=== PATIENT | female | born 1955 | race African-American/Black ===

== ENCOUNTER → 2019-10-29 11:31 | Outpatient (CLI) | payer MEDICARE, SELFPAY ==
--- NOTE | ~2019-10-29 | XR_ITS ---
EXAMINATION: XR foot LT min 3V, XR ankle LT min 3V EXAM DATE: 10/29/2019 12:05 INDICATION: No known recent injury provided at this time. Pain of the left ankle, foot. TECHNIQUE: Left foot dorsoplantar, lateral and oblique projections obtained and reviewed. Left ankle frontal, lateral and oblique projections obtained and reviewed. There is no prior study for compari son. FINDINGS: Left metatarsal bones unremarkable. The left ankle mortise appears intact. There is mo derate hallux valgus. There is mild 1st metatarsophalangeal joint primary osteoarthritis. No periost eal reaction or band of sclerosis to suggest subacute stress fracture. There are no bony erosions susana ntified. There are no acute fractures or dislocations identified. There is no subcutaneous gas. Trevin e swelling suspected along the anterior and lateral aspect of the ankle. There are no radiopaque for eign bodies. IMPRESSION: 1. Moderate left hallux valgus. 2. Mild 1st MTP osteoarthritis. 3. Ankle swelling anterolaterally Reviewed, dictated and finalized at location B. IMPRESSION: 1. Moderate left hallux valgus. 2. Mild 1st MTP osteoarthritis. 3. Ankle swelling anterolaterally
== END ==
DX: M20.12 Hallux valgus (acquired), left foot (principal); M19.072 Primary osteoarthritis, left ankle and foot; M79.89 Other specified soft tissue disorders
CPT/HCPCS: 73610; 73630

== ENCOUNTER 2021-06-25 09:59 | Outpatient (CLI) | payer MEDICARE, SELFPAY ==
[2021-06-25 11:39] LABS: Free T4 Free Thyroxine 0.95 ng/mL (0.78-2.19)
[2021-06-25 12:06] LABS: Thyroid Stimulating Hormone 0.052 uIU/mL (0.465-4.680)
[2021-06-30 08:38] LABS: Triiodothyronine T3 Free 3.5 pg/mL (2.3-4.2)
== END 2021-06-25 10:00 | disposition home or self-care (01) ==
PROVIDERS: PCP Family Medicine; Visit Provider Family Medicine
DX: E05.90 Thyrotoxicosis, unspecified without thyrotoxic crisis or storm (principal); E78.5 Hyperlipidemia, unspecified
CPT/HCPCS: 36415; 84439; 84443; 84481

== ENCOUNTER 2021-08-24 01:39 | Day surgery (SDC) | payer MEDICARE, SELFPAY ==
[2021-08-24 11:10] VITALS: BP 137/70; PULSE 60; RESP 18; TEMP 36.4; O2SAT 100
[2021-08-24] MEDS: LACTATED RINGERS 1,000 ML 150 ML IV CONT (11:21)
--- NOTE | 2021-08-24 11:32 | P.PNAN_ITS ---
Anes - Initial Pre Proc Eval Procedure: Operation Date: 08/24/21 12:30 Proposed Procedures p Screening Colonoscopy - David Guzman MD Date/Time: 08/24/21 11:32 Surgeon: David Guzman MD Pre Op Diagnosis: neoplasm screening Patient Data Age: 66 Gender: F Height: 1.55 m Weight: 48.2 kg Last Vital Signs Temp 36.4 C L 08/24/21 11:10 Pulse 60 08/24/21 11:10 Resp 18 08/24/21 11:10 BP 137/70 08/24/21 11:10 Pulse Ox 100 08/24/21 11:10 O2 Del Method Room Air 08/24/21 11:10 Allergies Allergy/AdvReac Type Severity Reaction Status Date / Time No Known Allergies Allergy Verified 08/24/21 11:09 Home Medications Medication Instructions Recorded Confirmed Type atorvastatin 10 mg tablet 0.5 tablet PO DAILY 08/11/21 08/11/21 History benzonatate 200 mg capsule 1 cap PO TID PRN Anxiety 08/11/21 08/11/21 History ergocalciferol (vitamin D2) 1,250 1 cap PO WEEKLY 08/11/21 08/11/21 History mcg (50,000 unit) capsule losartan 25 mg tablet 1 tablet PO DAILY 08/11/21 08/11/21 History Patient hx anesthesia problems: none Family hx anesthesia problems: none Results Review: All pre-operative results and documents have been reviewed as part of the pre- operative evaluation. PMFSH Past Medical History Medical History HTN (hypertension) Hyperlipidemia Smoker Social History Social History Smoking status: Current some day smoker Tobacco type: cigarettes Additional smoking assessment comments: 1 Cigarette a month Substance use: current Substance use type: marijuana Other substance usage details: Uses gummies 1-2 times a month for anxiety Last use: June 2021 Living arrangements: alone Spiritual care concerns: No Anes - Eval Final PreProcedure Day of Procedure 08/24/21 11:32 Patient weight: overweight Heart: regular rate and rhythm Lungs: clear to auscultation and normal air movement Airway: Mallampati scale class II Neurological: alert and oriented Last oral intake: >/= 8 hours ASA classification: II Emergent: no Anesthetic plan: proceed Anesthesia type and monitoring: general GIVS Results Review: All pre-operative results and documents have been reviewed as part of the pre- operative evaluation. Informed Consent: The patient's anesthetic plan and its attendant risks and benefits were discussed with the patient/family/POA. Questions were solicited and answers provided to the satisfaction of the patient/family/POA.
--- NOTE | 2021-08-24 11:52 | PM.HPGS ---
History of Present Illness History of Present Illness Consent: Risks, benefits, and alternatives have been discussed and questions answered. Patient agrees to proceed with procedure. Chief complaint: neoplasm screening Narrative: Becca Moscoso is a 66 year old female Referred for colon cancer screening. Review of Systems Review of Systems: All systems reviewed & are unremarkable except as noted in HPI and below PMFSH Past Medical History Medical History HTN (hypertension) Hyperlipidemia Smoker Social History Social History Smoking status: Current some day smoker Tobacco type: cigarettes Additional smoking assessment comments: 1 Cigarette a month Substance use: current Substance use type: marijuana Other substance usage details: Uses gummies 1-2 times a month for anxiety Last use: June 2021 Living arrangements: alone Spiritual care concerns: No Meds Home Medications and Allergies Home Medications Medication Instructions Recorded Confirmed Type atorvastatin 10 mg tablet 0.5 tablet PO DAILY 08/11/21 08/11/21 History benzonatate 200 mg capsule 1 cap PO TID PRN Anxiety 08/11/21 08/11/21 History ergocalciferol (vitamin D2) 1,250 1 cap PO WEEKLY 08/11/21 08/11/21 History mcg (50,000 unit) capsule losartan 25 mg tablet 1 tablet PO DAILY 08/11/21 08/11/21 History Allergies Allergy/AdvReac Type Severity Reaction Status Date / Time No Known Allergies Allergy Verified 08/24/21 11:09 Vital Signs Vital Signs - 24 hr 08/24/21 11:10 Temperature 36.4 C L Pulse Rate 60 Respiratory Rate 18 Blood Pressure 137/70 Pulse Oximetry 100 Oxygen Delivery Room Air Exam Const: General: alert Orientation/consciousness: patient oriented x3 Resp: Auscultation: clear to auscultation bilaterally Cardio: Rhythm: regular rhythm GI: GI Palp: Yes Soft to palpation and No Tenderness to palpation present (GI) Neuro: General: patient oriented x3 Assessment and Plan Assessment and plan (1) Colon cancer screening: Code(s): Z12.11 - Encounter for screening for malignant neoplasm of colon Status: Acute Assessment and Plan: Colonoscopy with possible biopsy or polypectomy or cautery or injection of substances.
--- NOTE | 2021-08-24 12:56 | SUR.OPER ---
Ascending colon polyp was not retrieved in polyp trap, Dr. Guzman aware, no further orders received.
[2021-08-24 12:58] VITALS: BP 110/60; PULSE 60; RESP 22; O2SAT 99
[2021-08-24 13:08] VITALS: BP 149/82; PULSE 62; RESP 19; O2SAT 100
[2021-08-24 13:18] VITALS: BP 151/84; PULSE 63; RESP 19; O2SAT 99
== END 2021-08-24 13:30 | disposition home or self-care (01) ==
PROVIDERS: PCP Family Medicine; Visit Provider Internal Medicine Gastroenterology
PROC: 0DJD8ZZ Inspection of Lower Intestinal Tract, Via Natural or Artificial Opening Endoscopic (ICD-10-PCS; CPT 45378; principal; 2021-08-24 12:30)
DX: Z12.11 Encounter for screening for malignant neoplasm of colon (principal); Q27.33 Arteriovenous malformation of digestive system vessel; K63.5 Polyp of colon; K57.30 Diverticulosis of large intestine without perforation or abscess without bleeding; I10 Essential (primary) hypertension; E78.5 Hyperlipidemia, unspecified; F17.210 Nicotine dependence, cigarettes, uncomplicated; F12.90 Cannabis use, unspecified, uncomplicated
CPT/HCPCS: 45388; 45385; J2704; J7120

== ENCOUNTER 2021-08-28 12:29 | Outpatient (CLI) | payer MEDICARE, SELFPAY ==
[2021-08-28 13:12] LABS: Cholesterol 187 mg/dL (0-200); HDL Direct 95 mg/dL; Triglycerides 52 mg/dL (<150)
[2021-08-28 13:23] LABS: LDL Cholesterol Direct 62 mg/dL
== END 2021-08-28 12:30 | disposition home or self-care (01) ==
LOC: ANHLAB 12:32
PROVIDERS: PCP Family Medicine; Visit Provider Family Medicine
DX: E78.5 Hyperlipidemia, unspecified (principal)
CPT/HCPCS: 36415; 80061

== ENCOUNTER 2021-09-09 10:56 | Outpatient (CLI) | payer MEDICARE, SELFPAY ==
--- NOTE | ~2021-09-09 | US_ITS ---
US thyroid INDICATION: Abnormal TSH levels TECHNIQUE: Real-time sonographic images of the thyroid gland were obtained. COMPARISON: No prior studies for comparison. FINDINGS: The right thyroid lobe measures 4.3 x 1.4 x 1.4 cm. The left thyroid lobe measures 4.3 x 1 x 1.5 cm. There is normal echotexture and echogenicity throughout the thyroid gland. No discrete nod ules identified. Normal vascular flow is present. IMPRESSION: 1. Normal thyroid without discrete nodule or abnormal vascularity. Reviewed, dictated and finalized at location A.
== END 2021-09-09 10:57 | disposition home or self-care (01) ==
PROVIDERS: PCP Family Medicine; Visit Provider Family Medicine
DX: E05.90 Thyrotoxicosis, unspecified without thyrotoxic crisis or storm (principal)
CPT/HCPCS: 76536

== ENCOUNTER 2024-07-09 13:16 | Outpatient (CLI) | payer MEDICARE, SELFPAY ==
--- NOTE | ~2024-07-09 | DEXA_ITS ---
Bone Density Report Name: FRANCO DOYLE Age: 69 Sex: Female Ethnicity: White Date of : 1955 Indication: postmenopausal; screening for osteoporosis; height loss; Referring Provider: AARTI, [facility] Study: Bone densitometry was performed. Exam Date: July 09, 2024 Accession number: [id number] Bone Density: Region BMD T-score Z-score Classification AP Spine(L1-L4) 0.888 -1.4 0.7 Osteopenia Femoral Neck (Left) 0.715 -1.2 0.6 Osteopenia Total Hip (Left) 0.843 -0.8 0.7 Normal Femoral Neck (Right) 0.658 -1.7 0.1 Osteopenia Total Hip (Right) 0.835 -0.9 0.6 Normal Total Hip Mean 0.839 -0.9 0.7 Normal World Health Organization criteria for BMD impression classify patients as: Normal (T-score at or above -1.0), Osteopenia (T-score between -1.0 and -2.5), or Osteoporosis (T-score at or below -2.5). 10-year Fracture Risk(1): Major Osteoporotic Fracture 3.6% Hip Fracture 0.7% Reported Risk Factors: [place] ([place]), Neck BMD=0.658, BMI=16.9 (1) FRAX(R) Version 3.08. Fracture probability calculated for an untreated patient. Fracture probability may be lower if the patient has received treatment. Clinical Information Provided by Patient: Has used the following medications: Vitamin D Patient maximum height was 64.0 Menopause Age: 49 Drinks caffeinated beverages Onset of menses at age 12 Number of children 2 Impression: The patient has low bone mass, based on the Right Femoral Neck T-score. The patient has an estimated ten-year risk of hip fracture of 0.7% and an estimated ten-year risk of major fracture of 3.6%, based on the WHO FRAX algorithm. Discussion: BONE DENSITY IS LOW AT ONE OR MORE SKELETAL SITES. This patient's lowest T-score is low at one or more skeletal sites. It meets the World Health Organization's (WHO) criteria for ?low bone mass? (T-score between -1.0 and -2.5). The patient's 10-year risk of fracture as calculated by FRAX is less than the threshold where pharmacological therapy is recommended by the National Osteoporosis Foundation (NOF). However, all treatment decisions require clinical judgment and consideration of individual patient factors, including patient preferences, comorbidities, previous drug use, risk factors not captured in the FRAX model (e.g., frailty, falls, vitamin D deficiency, increased bone turnover, interval significant decline in bone density) and possible under or overestimation of fracture risk by FRAX. The patient should follow a healthful lifestyle (good nutrition with adequate calcium and vitamin D, and appropriate weight-bearing exercise). Follow-Up: Consider repeating this study in 2 to 3 years to reassess this patient's status, or sooner if there is some new clinical indication. Reported by: EMILIANA on 07/09/2024 1:52:00 PM. Reviewed, dictated and finalized at location A. [facility]
--- OUTSIDE RECORDS SUMMARY | 2024-07-09 15:07 | XMS_ITS | Continuity of Care Document ---
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 Name Role Phone Stanford Shirley OD Unavailable Unavailable Allergies, Adverse Reactions, Alerts Substance Reaction Status Criticality No Known Drug Allergies Active No I nformation Medications Medication Instructions Dosage Effective Dates (start - stop) Status Comments MULTIVITAMINS - UNK STRENGTH - No Longer Active Boniva - UNK STRENGTH - No Longer Active Advance Directives Directive Yes / No Effective Date File Name No Information Encounters Encounter Description Practice Location Reason(s) For Visit Diagnoses Date Provider Providers Copied on Encounter [facility], [address], [place], [place], [id number], [place] [phone] [facility] No Information [address] [place], [address], [place]. tel: [phone] [facility], [address], [place], [place], [id number], [place] [phone] [facility] [place] - [place] [address] Charbel Guy. [address], [place], [address], [place]. tel: [phone] [facility], [address], [place], [place], [id number], [place] tel:[phone] [facility] G[place] - [place] SUSPECT [address] Odonnell. [address], [place], [address], [place]. tel: [phone] [facility], [address], [place], [place], [id number], [place] tel:[phone] [facility] GENERAL - MYOPIAGLAUCOMA - GLAUCOMA SUSPECTCATARACT - CORTICALCATARAC T - NSC [address] Odonnell. [address], [place], [address], [place]. tel: [phone] Family History Family Member Type Diagnosis Age At Onset No Information Payers Payer name Insurance type Covered constitution party ID Authoriza tion(s) No Information Social History Type Description Quantity Date Captured Comments Sex Female Smoking Status No Information Chief Complaint And Reason For Visit No Information Reason For Referral Reason For Referral No Information History Of Present Illness Encounter Date Complaint History Of Prese nt Illness No Information Functional Status Date Functional Assessmen t No Information Instructions Date Instruction Additional Infor mation No Information Assessments Type Assessment Date No Information Patient Care Teams Name Effective Dates (start - stop) Status Members No Information
--- OUTSIDE RECORDS SUMMARY | 2024-07-09 15:07 | XMS_ITS | Patient Health Record ---
Author Organization [facility] Address [address] [place] [address] Care Team Providers Care Melt Supervisor Name Role Phone Aleksandra Webster Primary Care Provider Reason For Referral No Information Medications Medication SIG (Take, Route, Fr equency, Duration) Notes Start Date End Date Status Ashwagandha 500 MG as directed Orally Active Zinc 30 MG 1 tablet Orally Once a day for 30 day(s) Active Multi Complete - Orally Act johnathon Vitamin D 1000 UNIT 1 tablet Orally Once a day Active Immunizations Vaccine Route Administration Date Status Comme nts Tdap Unknown 08/15/2008 Administered Tdap IM Intramuscular 06/29/2017 Administered Shingrix IM Intramuscular 08/17/2018 Administered Shingrix IM Intramuscular 11/03/2018 Administered Prevnar 13 (Pneumococcal Conjugate) IM Intramuscular 08/22/2019 Administered Influenza - Quadrivalent Fluzone (ages 9+) IM Intramuscular 03/26/2016 Administered Influenza - Quadrivalent Fluzone (ages 9+) IM Intramuscular 03/16/2017 Administered Influenza - Quadrivalent - Flucelvax Unknown 10/30/2018 Administered Influenza - High Dose Fluzone Quadrivalent (ages 65+) Unknown 12/21/2018 Administered [id number] Influenza - Flulaval (ages 18+) Unknown 12/15/2010 Administered Social History Tobacco Use: Social History Observation Description Date Details (start date - stop date) Never Smoker NA - NA Tobacco Use/Smoking Question Answer Notes Are you a nonsmoker Additional Findings: Tobacco Non-User Current no n-smoker Alcohol Screen Question Answer Notes Did you have a drink containing alcohol in the p ast year? No Points 0 Interpretation Negative Sexual History Question Answer Notes Had sex in the past 12 months (vaginal, oral, or anal)? Yes with Men only Use protection? No Have you ever had a Sexually transmitted disease ? 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 works at the [employer]---dir [employer]--- quit - now retired----exercise--yoga--and walking/running treadmill.. Problems Problem Type SNOMED Code ICD Code Onset Dates Problem Status W/U Status Risk Notes Problem Pure hypercholesterolemia (378463082) Pure hypercholester olemia, unspecified (E78.00) Active confirmed Problem Insomnia (589205731) Insomnia, unspecified (G47.00) Active confirmed Problem Vitamin D deficiency (96612946) Vitamin D deficiency, unspecified (E55.9) Active confirmed Problem Screening for malign ant neoplasm of breast (848274319) Encounter for screening mammogram for malignant neoplasm of breast (Z12.31) Active confirmed Problem Low back pain (875374034) Low back pain (M54.5) Active confirmed Problem Disorder of bone (16546972) Disorder of bone, unspecified (M89.9) Active confirmed Problem Normal body mass ind ex (26110358) Body mass index (BMI) 20.0-20.9, adult (Z68.20) Active confirmed Problem Anxiety disorder (101196611) Anxiety disorder, unspecified (F41.9) Active confirmed Problem Adult health examination (555199501) Encounter for general adult medical examination without abnormal findings (Z00.00) Active confirmed Plan Of Treatment Pending Test Test Name Order Date Ultrasound : Abdomen and Pelvis 03/16/19 18 Mammogram 08/17/2018 Mammogram 08/22/2019 Mammogram 11/08/2013 Mammogram 03/26/2016 Pap Smear 08/21/2018 DEXA (Bone Density) 03/08/2018 DEXA (Bone Density) 04/08/2016 DEXA (Bone Density) 02/06/2014 Stress Echocardiogram 11/08/2013 CBC 11/08/2013 CBC 08/16/2011 Free T4 (Free Thyroxine, Serum) (Ref Lab ) 03/30/2016 Free T3 (Free Triiodothyronine, Serum) 0 03/30/2016 Free T3 (Free Triiodothyronine, Serum) 0 04/19/2016 Free T4 (Free Thyroxine, Serum) 04/19/19 17 TSH 04/19/2016 DEXA - AXIAL SKELETON W/O VFA 08/22/2019 Insurance Providers Payer Name Payer Address Payer Phone Subscriber Number Group Number Insured Name Patient Relationship to Insured Coverage Start Date Coverage End Date [employer] PPO [address] [address] [place] [address] [id number] Melody Camp Self - patient is the insured Medical (General) History Medical History History ICD Code MVP dry eye syndrome dyspepsia menopausal low vitamin D osteopenia---2014-FRAX--2.4/.1 low TSH normal T3T4 Derm-Dr Peterson/GI-Dr Angela-/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
== END 2024-07-09 13:17 | disposition home or self-care (01) ==
LOC: ANHIMG 13:19
PROVIDERS: PCP Family Medicine; Visit Provider Family Medicine
DX: Z78.0 Asymptomatic menopausal state (principal); M85.88 Other specified disorders of bone density and structure, other site; M85.852 Other specified disorders of bone density and structure, left thigh; M85.851 Other specified disorders of bone density and structure, right thigh
CPT/HCPCS: 77080